=== PATIENT | female | born 1985 | race Two or more races ===

== ENCOUNTER 2022-12-05 17:42 | Inpatient (IN) | payer OTHER ==
[2022-12-05] VITALS (7 sets, daily range): BP systolic 91–108; BP diastolic 41–51
[~2022-12-05] VITALS: Ht 157.5 cm; Wt 107.6 kg
[2022-12-05] MEDS ORDERED: SODIUM CHLORIDE 0.9% 1,000 ML IV ONE (18:15)
[2022-12-05 18:33] LABS: Urine Bacteria NONE SEEN /hpf (None Seen); Urine Blood Negative /uL (Negative); Urine Specific Gravity 1.007 (1.001-1.035); Urine WBC <1 /hpf (0 - 5)
[2022-12-05 18:47] LABS: Basophils # (auto) 0 10 ^3/uL (0-0.2); Eosinophils # (auto) 0 10 ^3/uL (0-0.8); Monocytes # (auto) 0.2 10 ^3/uL (0-1.3); Neutrophils # (auto) 2.3 10 ^3/uL (1.6-8.6); White Blood Cell 3.5 10^3/uL (4.4-10.8)
[2022-12-05 18:49] LABS: Basophils % (auto) 0.5 % (0.0-2.0); Eosinophils % (auto) 0.1 % (0.0-7.0); Hematocrit 15.2 % (36.0-46.0); Lymphocytes % (auto) 28.9 % (10.0-50.0); Mean Corpuscular Hemoglobin 16.7 pg (28.0-32.0); Mean Corpuscular Hgb Conc. 28.8 g/dL (32.0-36.0); Mean Corpuscular Volume 58.1 fL (80.0-100.0); Monocytes % (auto) 4.6 % (0.0-12.0); Neutrophils % (auto) 65.9 % (37.0-80.0); Nucleated Red Blood Cells % 0.1 %; Red Blood Cells 2.61 10^6/uL (4.0-5.20); Red Cell Distribution Width 24.6 % (11.8-14.3)
[2022-12-05 18:52] LABS: Hemoglobin 4.4 g/dL (12.2-16.2)
[2022-12-05 19:09] LABS: Albumin 3.4 g/dL (3.4-5.0); Calcium 8.4 mg/dL (8.5-10.1); Potassium 3.8 mmol/L (3.5-5.1)
[2022-12-05 19:13] LABS: BUN/Creatinine Ratio 15.2 (10.0-20.0); Bilirubin, Total 0.3 mg/dL (0.2-1.0); Total Protein 6.9 g/dL (6.4-8.2)
[2022-12-05] MEDS ORDERED: ONDANSETRON HCL 4 MG/2 ML VIAL IV PRN (21:00)
[2022-12-05] MEDS ORDERED: MORPHINE SULFATE INJ 2 MG/ml SYRG IV PRN (21:00)
[2022-12-05] MEDS ORDERED: HYDROcodone-ACET 5/325MG TAB PO PRN (21:00)
[2022-12-05] MEDS ORDERED: ACETAMINOPHEN 325 MG TAB PO PRN (21:00)
[2022-12-05] MEDS ORDERED: NITROGLYCERIN 0.4 MG SL TAB SL PRN (21:00)
[2022-12-05] MEDS ORDERED: DOCUSATE SOD 100 MG CAP PO PRN (21:00)
[2022-12-06 00:20] VITALS: BP 107/42
[2022-12-06 00:34] VITALS: BP 96/48
[2022-12-06 01:15] VITALS: BP 96/36
[2022-12-06 02:00] VITALS: BP 107/55
[2022-12-06 02:35] VITALS: BP 95/51
[2022-12-06 06:24] LABS: Basophils # (auto) 0 10 ^3/uL (0-0.2); Eosinophils # (auto) 0 10 ^3/uL (0-0.8); Lymphocytes # (auto) 0.4 10 ^3/uL (0.4-5.4); Lymphocytes % (auto) 9.7 % (10.0-50.0); Monocytes # (auto) 0.1 10 ^3/uL (0-1.3); Neutrophils # (auto) 3.8 10 ^3/uL (1.6-8.6)
[2022-12-06 06:27] LABS: Basophils % (auto) 0.4 % (0.0-2.0); Eosinophils % (auto) 0.3 % (0.0-7.0); Hematocrit 21.8 % (36.0-46.0); Mean Corpuscular Hemoglobin 20.9 pg (28.0-32.0); Mean Corpuscular Hgb Conc. 31.7 g/dL (32.0-36.0); Monocytes % (auto) 2.5 % (0.0-12.0); Neutrophils % (auto) 87.1 % (37.0-80.0); White Blood Cell 4.3 10^3/uL (4.4-10.8)
[2022-12-06 06:32] LABS: Red Cell Distribution Width 30.8 % (11.8-14.3)
[2022-12-06 06:33] LABS: Hemoglobin 6.9 g/dL (12.2-16.2)
[2022-12-06 06:38] LABS: Potassium 3.8 mmol/L (3.5-5.1)
[2022-12-06 06:46] LABS: BUN/Creatinine Ratio 13.9 (10.0-20.0); Bilirubin, Total 0.6 mg/dL (0.2-1.0); Total Protein 6.2 g/dL (6.4-8.2)
[2022-12-06 11:36] VITALS: BP 99/58
== END 2022-12-06 11:43 | disposition home or self-care (01) | DRG 812 ==
LOC: ER 17:42 → TELE 20:56
PROVIDERS: ADMIT Nurse Practitioner Family; ATTEND Obstetrics & Gynecology
PROC: 30233N1 Transfusion of Nonautologous Red Blood Cells into Peripheral Vein, Percutaneous Approach (ICD-10-PCS; principal; 2022-12-05)
DX: D64.9 Anemia, unspecified (principal); N92.0 Excessive and frequent menstruation with regular cycle; E86.0 Dehydration; F17.200 Nicotine dependence, unspecified, uncomplicated; Z98.84 Bariatric surgery status; Z90.49 Acquired absence of other specified parts of digestive tract
CPT/HCPCS: 36415; 76856; 80053; 81001; 81025; 85025; 86850; 86900; 86901; 86920; 93005; G0378